=== PATIENT | male | born 1965 | race African-American/Black ===

== ENCOUNTER 2016-09-10 21:47 | Emergency (ER) | payer MEDICARE, OTHER ==
[~2016-09-10] VITALS: Ht 180.3 cm; Wt 72.6 kg
[2016-09-10 21:54] VITALS: BP 110/67
[2016-09-10] MEDS ORDERED: LORazepam Inj 2mg/ml 1ml IM ONE ×2 (22:00→23:30)
[2016-09-10 23:15] VITALS: BP 130/85
[2016-09-11 01:15] VITALS: BP 137/100
[2016-09-11] MEDS ORDERED: Haloperidol 5mg/ml Inj IM ONE (02:00)
[2016-09-11 03:15] VITALS: BP 131/82
[2016-09-11 05:15] VITALS: BP 137/88
--- NOTE | 2016-09-11 05:32 | Emergency Room Report ---
History of Present Illness General Chief Complaint: Behavioral Complaint Source: Patient, EMS Present Illness HPI 40-year-old male brought to ED for evaluation. Per EMS bystanders called 911 this patient was on the street holding his head and screaming. Upon arrival, patient is holding both sides of his head, screaming. Not speaking. Unable to provide any history at this time. Patient is well known to [place] staff stating that patient has been here before for similar presentation. Patient has known history of substance abuse. Patient agrees to given Ativan and symptoms had resolved. No reported chest pain or shortness of breath. No reported suicidal or homicidal ideation. No other aggravating or relieving factors. No other associated symptoms Allergies: Coded Allergies: No Known Allergies (Unverified , 09/10/16) Patient History Past Medical History: none Past Surgical History: none Pertinent Family History: none Social History: Reports: drug use, Denies: alcohol use, smoking Immunizations: UTD Reviewed Nursing Documentation: PMH: Agreed, PSxH: Agreed Nursing Documentation-PMH Past Medical History: No Stated History Review of Systems All Other Systems: negative except mentioned in HPI Physical Exam Vital Signs Date Time Temp Pulse Resp B/P Pulse Ox O2 Delivery O2 Flow Rate FiO2 09/10/16 21:45 24 Room Air 09/10/16 21:54 98.0 79 110/67 09/11/16 01:15 100 Sp02 EP Interpretation: reviewed, normal General Appearance: alert, GCS 15, other - agitated, screaming Head: normocephalic Eyes: bilateral eye PERRL, bilateral eye normal inspection ENT: normal ENT inspection Neck: normal inspection Respiratory: normal inspection Cardiovascular #1: normal inspection Gastrointestinal: normal inspection Rectal: deferred Genitourinary: no CVA tenderness Musculoskeletal: normal inspection Neurologic: other - agitated, screaming Psychiatric: other - agitated, screaming Skin: normal inspection Lymphatic: normal inspection Medical Decision Making Diagnostic Impression: Primary Impression: Substance abuse Additional Impression: Behavioral disorder ER Course Hospital Course 50-year-old M presents to ED with behavioral disturbance. Holding his hands over his ears, screaming Differential diagnoses include: Psychosis, EtOH, drug abuse Clinical course patient placed on stretcher. On rn cardiac rehab. patient is well known to staff at [facility]. States that patient has history of substance abuse and presented in similar fashion every time he uses drugs. After initial history and physical I ordered ativan/haldol Patient allowed to sleep here. Patient is now awake alert oriented x3, ambulating i. I feel this is a highly complex case requiring extensive working including EKG/Rhythm strip, Xray/CT/US, Blood/urine lab work, repeat exams while in ED, and administration of strong opiates/narcotics for pain control, admission to hospital or close patient follow up. Diagnosis - substance abuse, behavioral disorder Stable and discharged to home. Followup with PMD. Return to ED if symptoms recur or worsen Last Vital Signs Date Time Temp Pulse Resp B/P Pulse Ox O2 Delivery O2 Flow Rate FiO2 09/11/16 05:15 98.0 109 21 137/88 100 Room Air Status: improved Disposition: HOME, SELF-CARE Condition: Stable Referrals: NOT CHOSEN JOSE/,REFERRING (PCP) KOTA BENOIT M.D. Sep 11, 2016 05:32
[2016-09-11 06:43] VITALS: BP 138/85
[2016-09-11 07:09] VITALS: BP 138/85
[2016-09-11] MEDS ORDERED: cogentin PO (08:18)
== END 2016-09-11 07:14 | disposition home or self-care (01) ==
LOC: EDBD 21:47 → EMR 22:05
DX: F19.10 Other psychoactive substance abuse, uncomplicated (principal); F91.9 Conduct disorder, unspecified
CPT/HCPCS: 96372; 99283; J1630

== ENCOUNTER 2016-09-11 07:42 | Emergency (ER) | payer MEDICARE, OTHER ==
[~2016-09-11] VITALS: Ht 188 cm; Wt 68.0 kg
[2016-09-11] MEDS ORDERED: Benztropine 1mg tab ORAL ONE (08:00)
--- NOTE | 2016-09-11 08:00 | Emergency Room Report ---
History of Present Illness General Chief Complaint: Allergic Reaction Source: Patient Present Illness HPI 50 YO M just discharged by Dr Goldsmith went back to waiting room/registration window stating he has "dystonia" to [facility] he received here overnight for acute behavioral change, requesting Cogentin. I was present when patient was discharged 15 minutes prior when patient was asking for Rx for Cogentin; we told patient we dont generally discharge with anti psychotic meds refills and that he needs to followup with PMD/Psychiatrist. I strongly suspect patient is malingering for congentin because he didnt get it as an Rx. See previous note by Dr Goldsmith for full HPI of this patient. Allergies: Coded Allergies: No Known Allergies (Unverified , 09/10/16) Patient History Past Medical History: see triage record, old chart reviewed Nursing Documentation-[facility] Past Medical History: No History, Except For History Of Psychiatric Problem: Yes - meth use/etoh abuse Review of Systems All Other Systems: negative except mentioned in HPI Physical Exam Vital Signs Date Time Temp Pulse Resp B/P Pulse Ox O2 Delivery O2 Flow Rate FiO2 09/11/16 07:43 97.2 102 16 115/77 100 Room Air Sp02 EP Interpretation: reviewed, normal General Appearance: normal inspection, well appearing, no apparent distress, alert Head: atraumatic ENT: normal ENT inspection, hearing grossly normal, normal pharynx, no angioedema, normal voice, TMs + canals normal, uvula midline, moist mucus membranes Neck: normal inspection, full range of motion, supple, no bony tend Respiratory: normal inspection, lungs clear, normal breath sounds, no respiratory distress, no retraction, no wheezing Cardiovascular #1: regular rate, rhythm, no edema Gastrointestinal: normal inspection, normal bowel sounds, non tender, soft, no guarding, no hernia Genitourinary: no CVA tenderness Musculoskeletal: normal inspection, back normal, normal range of motion, Nitza' s Sign negative, other - no excessive movement disorder noted Neurologic: normal inspection, alert, oriented x3, responsive, special collections librarian III-XII nml as tested, motor strength/tone normal, speech normal Psychiatric: normal inspection, judgement/insight normal, mood/affect normal Medical Decision Making Diagnostic Impression: Primary Impression: Movement disorder ER Course 50 YO M with alleged movement disorder/dystonia from [facility]. VSS. Afebrile. 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 Sep 11, 2016 08:00
[2016-09-11 08:13] VITALS: BP 115/77
[2016-09-11] MEDS ORDERED: cogentin PO (08:18)
== END 2016-09-11 08:19 | disposition home or self-care (01) ==
LOC: EMR 08:03
DX: G24.9 Dystonia, unspecified (principal)
CPT/HCPCS: 99282